=== PATIENT | male | born 1965 | race Caucasian/White ===

== ENCOUNTER → 2016-08-21 | Outpatient (CLI) | payer OTHER ==
[2014-04-07 14:02] VITALS: BP 126/80
--- NOTE | 2016-08-21 13:01 | RAD ---
HISTORY: Chronic back pain Study: Three-view lumbar spine Comparison: None Findings: Minimal rightward curvature of the lumbar spine is noted and may be in part secondary to patient pos itioning. Vertebral alignment is otherwise normal. There is no spondylolisthesis. Vertebral body hei ght is maintained throughout. No compression fracture is visualized. There is moderate to severe los s of disc space height at the L5-S1 level as well as at the T11-T12 level. There is also moderate lo ss of disc space height at the L4-L5 level and mild loss of disc space height at the remaining lumba r levels. Multilevel degenerative endplate changes and marginal osteophytosis are noted. There is al so facet hypertrophy which is most significant within the lower lumbar spine. IMPRESSION: 1. Multilevel degenerative disc disease and facet arthropathy as detailed above. Reported By:
== END ==
LOC: RAD 11:36
PROVIDERS: ATTEND Internal Medicine
DX: M54.5 Low back pain (principal); M51.36 Other intervertebral disc degeneration, lumbar region
CPT/HCPCS: 72100